=== PATIENT | male | born 1950 | race Caucasian/White ===

== ENCOUNTER 2016-07-01 05:02 | Emergency (ER) | payer MEDICARE, MEDICAID ==
[~2016-07-01] VITALS: Ht 170.2 cm; Wt 55.0 kg
[~2016-07-01 05:02] MED LIST: ACET-1757 PO; ACET325T14 PO; ACID1GRA2 PO; ALBU18HF INH; ALBU6.7H NPPB; AMIT10TA PO; AMIT25TA PO; AMLO5TAB2 PO; AMOX1TAB64 PO; ASPI-621 PO; ASPI-650 PO; ASPI325T80 PO; ASPI81TA50 PO; ATOR20TA9 PO; ATOR40TA PO; BACL-19 PO; BUPR1FIL3 PO; CEPH-376 PO; CHLO25TA PO; CHLORTHALIDONE; CLON-365 PO; CLON1TAB23 PO; CYCL-259 PO; DEXA2TAB PO; DIAZ5TAB PO; DIAZ5TAB4 PO; DOCU-30 PO; DOXY100T PO; ENOX40SY4 SQ; FENT1PAT77 TD; FENTANYL 100MCG; GABA-827 PO; GABA400C PO; Hydrocodone Bit/Acetaminophen PO; IPRA3AMP NPPB; IRBE75TA31 PO; ISOS20TA3 PO; ISOS30TA8 PO; KETO10TA PO; LEVO500T8 PO; LISI-167 PO; LISI-170 PO; METO25TA9 PO; METO25TA91 PO; METR500T PO; MUPI15CR9 TP; MUPIROCIN; NICO1PAT4 TD; NICO1PAT5 TD; NITR0.4T SL; OMEP-110 PO; ONDA4TAB10 PO; OXYC-229 PO; OXYC15TA PO; OXYC5TAB2 PO; OXYC5TAB3 PO; POLY17PO5 PO; POTA20PA8 PO; RANO500T2 PO; SENN-31 PO; SIMV20TA3 PO; TICA90TA PO; VANC125C2 PO
[2016-07-01] MEDS ORDERED: KETOROLAC 30 MG/1 ML IM ONE (06:00)
[2016-07-01] MEDS ORDERED: METHOCARBAMOL 750 MG TABLET PO ONE (06:00)
[2016-07-01 06:05] VITALS: BP 135/78
[2016-07-01] MEDS ORDERED: KETOROLAC 30 MG/1 ML ONE (06:08)
[2016-07-01] MEDS ORDERED: METHOCARBAMOL 750 MG TABLET ONE (06:08)
== END 2016-07-01 06:26 | disposition home or self-care (01) ==
LOC: ED 06:02
DX: S39.012A Strain of muscle, fascia and tendon of lower back, initial encounter (principal); G89.29 Other chronic pain; M54.5 Low back pain; J44.9 Chronic obstructive pulmonary disease, unspecified; Z95.0 Presence of cardiac pacemaker; F17.210 Nicotine dependence, cigarettes, uncomplicated; X58.XXXA Exposure to other specified factors, initial encounter; Y93.89 Activity, other specified; Y99.8 Other external cause status; Y92.89 Other specified places as the place of occurrence of the external cause
CPT/HCPCS: 96372; 99283; J1885